=== PATIENT | male | born 1975 | race Hispanic/Latino ===

== ENCOUNTER 2017-02-04 10:29 | Observation (INO) | payer SELFPAY ==
[2017-02-04 11:06] LABS: Hematocrit 52.4 % (42.0-52.0); Mean Platelet Volume 7.5 fL (7.4-10.4); Red Blood Cell (RBC) Count 5.64 mill/uL (4.70-6.10); White Blood Cell (WBC) Count 6.4 thou/uL (4.8-10.8)
[2017-02-04] MEDS ORDERED: Nitroglycerin 2% Ointment 1 INCH/1 GM Packet ONE (11:06)
--- NOTE | 2017-02-04 11:09 | RAD ---
UPRIGHT PORTABLE CHEST ONE VIEW: HISTORY: A 41-year-old male with chest pain and a history of hypertension. FINDINGS: Monitor leads overly the chest. Heart size is within normal limits. Lungs are clear. Right hip anthony int arthrosis. IMPRESSION: No acute intrathoracic disease. POS: [facility]
[2017-02-04 11:26] LABS: ALT (SGPT) 104 U/L (8-55); AST (SGOT) 103 U/L (5-34); Alkaline Phosphatase 82 U/L (40-150); Anion Gap 14 mmol/L (10-20); BUN (Urea Nitrogen) 15 mg/dL (8.9-20.6); Band 1 % (5-11); Bilirubin, Total 1.3 mg/dL (0.2-1.2); CK (CPK) 59 U/L (30-200); Calc. Creatinine Clearance 0 mL/min (70-130); Calcium 9.7 mg/dL (7.8-10.44); Carbon Dioxide 25 mmol/L (22-29); Chloride 101 mmol/L (98-107); Estimated GFR-MDRD Greater than 90; Globulin 3.9 g/dL (2.4-3.5); Lipase 29 U/L (8-78); Neutrophil 70 % (42-75); Protein, Total 8.4 g/dL (6.0-8.3); Reactive Lymphocytes 1 % (0-10)
[2017-02-04 11:29] LABS: Troponin I 0.012 ng/mL (< 0.028)
[2017-02-04 14:03] LABS: Troponin I Less than 0.010 ng/mL (< 0.028)
--- NOTE | 2017-02-04 14:37 | HP ---
PRIMARY CARE PHYSICIAN: [facility] call admission. REASON FOR ADMISSION: Chest pain. HISTORY OF PRESENT ILLNESS: A 41-year-old male, who claims that he does not have any medic al history, who came to the emergency room with complaint of chest pain for 3 days. The patient rep orts that his chest pain is substernal in location on and off, lasts for 20 minutes, subsides by its elf and recurrent. There is no specific aggravating and relieving factor. The patient feels someti mes diaphoresis. He denies any nausea or vomiting. He denies any radiation of pain. His intensity of pain is about 4/10. He denies any cough. He denies any palpitations, dizziness, or syncope. H e denies any polyuria or polydipsia. Patient has history of smoking about 5 cigarettes daily basis. He also drinks beer every day basis. He denies any burning pain. He denies any hematemesis or melena. He denies any epigastric or rig ht upper quadrant pain. Today in the emergency room, he has hyperglycemia with blood glucose of 329 and his LFT is also abno rmal. His blood pressure was also very high when he arrived to the emergency room and it was remain ing high. The patient is not taking any specific medication. At this point, we are admitting this patient for further evaluation and treatment. PAST MEDICAL HISTORY: Per patient, he does not have any medical history. He denies any diabetes, h ypertension or dyslipidemia. PAST SURGICAL HISTORY: Patient denies any previous surgical history. PAST PSYCHIATRIC HISTORY: The patient denies any previous psychiatric history. SOCIAL HISTORY: Patient reports that he smokes 5-6 cigarettes on a daily basis. He drinks 8-9 beer s on a daily basis. He lives with a roommate. He denies any other illicit drug abuse. He is worki ng in construction. FAMILY HISTORY: No strong family history of premature coronary artery disease, stroke or cancer. ALLERGIES: No known drug allergies. CURRENT HOME MEDICATIONS: The patient is not on any specific medication. REVIEW OF SYSTEMS: The following complete review of systems was negative, unless otherwise mentione d in the HPI or below: CONSTITUTIONAL: Weight loss or gain, ability to conduct usual activities. SKIN: Rash, itching. EYES: Double vision, pain. ENT/MOUTH: Nose bleeding, neck stiffness, pain, tenderness. CARDIOVASCULAR: Palpitations, dyspnea on exertion, orthopnea. RESPIRATORY: Shortness of breath, wheezing, cough, hemoptysis, fever or night sweats. GASTROINTESTINAL: Poor appetite, abdominal pain, heartburn, nausea, vomiting, constipation, or diar ya. GENITOURINARY: Urgency, frequency, dysuria, nocturia. MUSCULOSKELETAL: Pain, swelling. NEUROLOGIC/PSYCHIATRIC: Anxiety, depression. ALLERGY/IMMUNOLOGIC: Skin rash, bleeding tendency. Please see my HPI for pertinent positives and negatives. All other review of systems reviewed and n egative except as mentioned in the HPI. EMERGENCY ROOM COURSE: Patient is given IV fluid, aspirin and nitropatch. PHYSICAL EXAMINATION: VITAL SIGNS: On arrival, blood pressure 205/114, pulse 84, respiratory rate 20, temperature 98.8, s aturation 97% on room air. Weight 127 kilograms. GENERAL: Patient is currently alert, awake, no obvious acute distress. HEAD: Normocephalic, atraumatic. EYES: Pupils round, reactive to light. Extraocular muscles intact. ENT: Oropharynx within normal limits. Moist mucous membranes. No oral lesions. No pharyngeal thom thema, no exudates. NECK: Supple Range of motion is normal. No meningeal signs of irritation. LUNGS: Clear to auscultation without any rhonchi or rales. CARDIAC: S1, S2 regular without any murmur. ABDOMEN: Soft, bowel sounds present, nontender, nondistended. No organomegaly, no mass, no suprapu bic tenderness, no [place] sign. BACK: Unremarkable, no CVA tenderness. EXTREMITIES: Upper extremity: Passive movement of all joints are normal. Lower extremity: No tayler ma. Good peripheral pulsation. SKIN: No skin rash. HEMATOLOGICAL: No lymphadenopathy. NEUROLOGIC: Nonfocal examination. SIGNIFICANT LABS: CBC: WBC 6.4, hemoglobin 17.1, platelets 175. BMP: Sodium 136, potassium 4.2, chloride 101, carbon dioxide 25, anion gap 14, BUN 15, creatinine 0.85, glucose 329, calcium 9.7. L FT: AST 103, ALT 104, alkaline phosphatase 82, albumin 4.5. BNP 49.5, CK-MB 1.2, troponin I 0.012. IMAGING: EKG based on my review, normal sinus rhythm without any ischemic changes. ASSESSMENT AND PLAN/IMPRESSION: 1. Acute and recurrent chest pain. This patient has hyperglycemia, tobacco abuse history. He is a lso hypertensive and he has obesity. He has metabolic syndrome. He is at risk for coronary artery disease. At this point, cardiac enzymes negative. His description of chest pain is also atypical. At this point, cardiac etiology needs to be excluded and that is why we will perform exercise Cardi olite stress test tomorrow morning. We will check lipid profile for risk stratification. Meanwhile , we will continue with aspirin 325 mg p.o. daily, Protonix 40 mg p.o. daily, nitropatch q.8 hourly. We will do serial cardiac enzymes x3. 2. New onset diabetes type 2, Suspected this patient's blood glucose is 329. I am suspecting new o nset diabetes on him. We will check hemoglobin A1c. We will also check urinalysis. Dietary consul t will be placed and depending upon his hemoglobin A1c. We will consider adding oral diabetic medic ation upon discharge, metformin, oral glyburide. We will continue with insulin as per sliding scale protocol and will provide diabetic diet only today. 3. Hypertension with hypertensive urgency and uncontrolled hypertension. This patient has new diag nosis of hypertension. At this point, we will continue with nitro patch. We will also consider add ing lisinopril 5 mg p.o. b.i.d. upon discharge. We will also consider adding diuretics like hydroch lorothiazide. We will also consider adding beta daron therapy upon discharge. We will monitor he modynamics as needed basis. We will consider using hydralazine and clonidine on p.r.n. basis. 4. Abnormal liver function test, likely related with his alcohol use versus fatty liver. We will o btain right upper quadrant ultrasound and we will check hepatitis profile to rule out any other path ology. 5. Tobacco abuse disorder. Smoking cessation counseling given. Healthy lifestyle measures discuss ed with the patient. 6. Alcohol abuse. Patient is given counseling to avoid alcohol protocol. We will start folic acid and vitamin B12 while in hospital. We will also consider adding Ativan to use p.r.n. basis to prev ent any withdrawal reaction. 7. Deep venous thrombosis prophylaxis not needed because we are expecting discharge in 24 hours. 8. Gastrointestinal prophylaxis, Protonix 40 mg p.o. daily. CODE STATUS: Patient is FULL CODE. Disposition plan based on clinical course and above-mentioned investigation result.
[2017-02-04] MEDS ORDERED: Senokot 8.6 MG TAB PO PRN (15:02)
[2017-02-04] MEDS ORDERED: Dextrose 50% Abboject 50 ML SYRINGE SLOW IVP PRN (15:02)
[2017-02-04] MEDS ORDERED: Sodium Chloride 0.65% Nasal 44 ML BOT EA NARE PRN (15:02)
[2017-02-04] MEDS ORDERED: Mag-Al 1200 mg/1200 mg/30 ML UDCUP PO PRN (15:02)
[2017-02-04] MEDS ORDERED: Ondansetron HCl/PF 4 MG/2 ML Vial IVP PRN (15:02)
[2017-02-04] MEDS ORDERED: Ondansetron ODT 4 MG TAB PO PRN (15:02)
[2017-02-04] MEDS ORDERED: Zolpidem Tartrate 5 MG TAB PO PRN (15:02)
[2017-02-04] MEDS ORDERED: Dextrose 5% in Water 1,000 ML IV PRN (15:02)
[2017-02-04] MEDS ORDERED: Diabetic Tussin 200 MG/10 ML UDCUP PO PRN (15:02)
[2017-02-04] MEDS ORDERED: Nitroglycerin 0.4 MG TAB (25 Tab Bottle) SL PRN (15:02)
[2017-02-04] MEDS ORDERED: HumaLOG 300 UNITS/3 ML VIAL SC PRN (15:02)
[2017-02-04] MEDS ORDERED: Lorazepam 1 MG TAB PO PRN (15:02)
[2017-02-04] MEDS ORDERED: Milk Of Magnesia 30 ML UDCUP PO PRN (15:02)
[2017-02-04] MEDS ORDERED: HYDROcodone/Acetaminophen 5/325 mg Tablet PO PRN (15:02)
[2017-02-04 15:04] VITALS: BMI 42.0
[2017-02-04 15:20] LABS: Hemoglobin A1c 9.3 % (4.0-6.0)
[2017-02-04] MEDS: Acetaminophen 325 MG TAB PO PRN (17:06)
[2017-02-04 17:43] LABS: Bilirubin Negative (Negative); Blood, Urine Negative (Negative); Glucose, Urine (Dipstick) >=1000 mg/dL (Negative); Ketone, Urine Negative (Negative); Nitrite Negative (Negative); Protein, Urine (Dipstick) Negative (Neg-Trace)
[2017-02-04 17:45] LABS: Bacteria/HPF None Seen HPF (None Seen); Hyaline Casts/LPF 0-3 HYALINE CAST LPF (0-3 Hyaline); RBC/HPF 0-3 HPF (0-3); Squamous Epithelial None Seen HPF (0-3); WBC/HPF None Seen HPF (0-3)
[2017-02-04 17:46] LABS: Troponin I Less than 0.010 ng/mL (< 0.028)
[2017-02-04 17:52] LABS: Amphetamine Not Detected (NotDetected); Methadone Not Detected (NotDetected); Methamphetamine Not Detected (NotDetected)
[2017-02-04] MEDS: cloNIDine HCl 0.1 MG TAB PO PRN (17:57)
[2017-02-04] MEDS: Nitroglycerin 2% Ointment 1 INCH/1 GM Packet TOP SCH (18:25)
[2017-02-04] MEDS: HumaLOG 300 UNITS/3 ML VIAL SC PRN (18:27)
[2017-02-05] MEDS: cloNIDine HCl 0.1 MG TAB PO PRN ×2 (01:05→13:00)
[2017-02-05] MEDS: Nitroglycerin 2% Ointment 1 INCH/1 GM Packet TOP SCH ×5 (04:01→21:36)
[2017-02-05 04:59] LABS: #Eosinphils 0.3 thou/uL (0.0-0.7); #Lymphocytes 1.7 thou/uL (1.20-3.40); #Monocytes 0.5 thou/uL (0.11-0.59); #Neutrophils 4.5 thou/uL (1.40-6.50); %Basophils 0.5 % (0.0-1.0); %Eosinophils 3.8 % (0.0-10.0); %Monocytes 7.4 % (0.0-10.0); Hematocrit 46.7 % (42.0-52.0); Mean Platelet Volume 7.4 fL (7.4-10.4); White Blood Cell (WBC) Count 6.9 thou/uL (4.8-10.8)
[2017-02-05 05:17] LABS: ALT (SGPT) 89 U/L (8-55); AST (SGOT) 63 U/L (5-34); Alkaline Phosphatase 66 U/L (40-150); Anion Gap 12 mmol/L (10-20); BUN (Urea Nitrogen) 13 mg/dL (8.9-20.6); Bilirubin, Total 0.9 mg/dL (0.2-1.2); Calc. Creatinine Clearance 224 mL/min (70-130); Calcium 9.1 mg/dL (7.8-10.44); Carbon Dioxide 24 mmol/L (22-29); Chloride 105 mmol/L (98-107); Cholesterol 221 mg/dl (< 200 Desired); Estimated GFR-MDRD Greater than 90; Globulin 3.1 g/dL (2.4-3.5); LDL Cholesterol, Calculated 151 mg/dL
--- NOTE | 2017-02-05 07:20 | ULT ---
RIGHT UPPER QUADRANT ULTRASOUND: INDICATION: Abnormal LFTs. COMPARISON: None. FINDINGS: There is diffuse increased echogenicity of the liver with diminished penetration consistent with fat ty infiltration. The liver is enlarged measuring 91.7 cm. There are areas of suspected focal sparr ing near the gallbladder fossa. The visualized gallbladder is normal-appearing. No sonographic Mur phy's sign is reported. Common bile duct measures 2.7 mm. The pancreas is partially obscured but without evidence of acute sonographic abnormality within its visualized segments. The right kidney measures 14 x 4.9 x 5 cm. There is a small 1.8 cm cyst involving the inferior pole of the right kidney. IMPRESSION: 1. Prominent fatty infiltration of the liver with hepatomegaly. 2. Right renal cyst. 3. No additional sonographic abnormality of the right upper quadrant. POS: [facility]
[2017-02-05] MEDS ORDERED: Communication Order-Pharmacy FS SCH (09:45)
[2017-02-05] MEDS ORDERED: Sodium Chloride 0.9% 1,000 ML IV SCH ×2 (09:45→11:30)
[2017-02-05] MEDS: Lisinopril 10 MG TAB PO SCH (10:19)
[2017-02-05] MEDS: Aspirin 325 MG TAB PO SCH (10:19)
[2017-02-05] MEDS: Hydrochlorothiazide 25 MG TAB PO SCH (10:20)
--- NOTE | 2017-02-05 10:40 | NM ---
CARDIAC SPECT AT REST: CLINICAL HISTORY: 41-year-old male with chest pain. TECHNIQUE: A rest-only myocardial perfusion scan was performed following the intravenous administration of 28.4 mCi technetium-99m sestamibi. Stress test was not performed and the patient was taken directly to [facility]. FINDINGS: Homogeneous tracer distribution is seen in the myocardial segments on the rest images. IMPRESSION: Normal myocardial perfusion at rest. POS: [facility]
[2017-02-05] MEDS ORDERED: Midazolam HCl 2 mg/2 ml Vial ONE (10:54)
[2017-02-05] MEDS ORDERED: Fentanyl 100 MCG/2 ML VIAL ONE (10:54)
[2017-02-05] MEDS ORDERED: Heparin 10,000 UNITS/1 ML VIAL ONE (10:54)
[2017-02-05] MEDS ORDERED: Nitroglycerin 100MG/250ML BOT 250 ML ONE (10:54)
[2017-02-05] MEDS ORDERED: Acetaminophen/Codeine 30-300mg Tablet PO PRN ×2 (11:27)
[2017-02-05] MEDS ORDERED: traMADol HCl 50 MG TAB PO PRN (11:27)
[2017-02-05] MEDS ORDERED: Nitroglycerin 0.4 MG TAB (25 Tab Bottle) SL PRN (11:27)
[2017-02-05] MEDS ORDERED: Sodium Chloride 0.9% 200 ML IV SCH (11:30)
[2017-02-05] MEDS: Folic Acid 1 MG TAB PO SCH (12:22)
[2017-02-05] MEDS: Cyanocobalamin (Vitamin B-12) 1,000 MCG TAB PO SCH (12:22)
[2017-02-05] MEDS: Multivitamin W/ Minerals 1 TAB PO SCH (12:22)
[2017-02-05] MEDS: HumaLOG 300 UNITS/3 ML VIAL SC PRN ×2 (12:24→18:27)
--- NOTE | 2017-02-05 13:53 | PDOC.PN ---
- Subjective Encounter Start Date: 02/05/17 Encounter Start Time: 13:52 Subjective: s/p cardiac Cath.feels Ok. no CP/SOB - Objective Resuscitation Status: Resuscitation Status FULL:Full Resuscitation MAR Reviewed: Yes Vital Signs & Weight: Vital Signs (12 hours) Temp Pulse Resp BP BP Pulse Ox 02/05/17 13:00 203/105 H 02/05/17 12:01 98.9 F 76 16 171/95 H 96 02/05/17 08:00 98.7 F 88 18 02/05/17 07:54 98.7 F 88 18 176/87 H 95 02/05/17 03:55 98.5 F 84 20 176/92 H 95 02/05/17 02:30 88 185/85 H Weight Weight 260 lb 12.8 oz I&O: 02/04/17 02/05/17 02/06/17 06:59 06:59 06:59 Intake Total 861 240 Output Total 300 Balance 561 240 Result Diagrams: 02/05/17 04:35 02/05/17 04:35 Additional Labs: Accuchecks 02/05/17 02/04/17 02/04/17 11:57 21:09 17:19 POC Glucose 246 H 289 H 265 H Laboratory Tests 02/04/17 02/04/17 02/04/17 10:55 10:55 13:27 Hemoglobin A1c Total Bilirubin 1.3 H AST 103 H ALT 104 H Alkaline Phosphatase 82 Troponin I 0.012 Less than 0.010 TSH 3rd Generation 02/04/17 02/04/17 02/04/17 15:02 15:02 17:15 Hemoglobin A1c 9.3 H Total Bilirubin AST ALT Alkaline Phosphatase Troponin I Less than 0.010 TSH 3rd Generation 1.4475 02/05/17 04:35 Hemoglobin A1c Total Bilirubin 0.9 AST 63 H ALT 89 H Alkaline Phosphatase 66 Troponin I TSH 3rd Generation Radiology Reviewed by me: Yes (Abd US- fatty liver) Phys Exam - Physical Examination Constitutional: NAD HEENT: PERRLA, moist MMs, sclera anicteric, TM's clear, oral pharynx no lesions , 2+ tonsils Neck: no nodes, no JVD, supple, full ROM Respiratory: no wheezing, no rales, no rhonchi, clear to auscultation bilateral Cardiovascular: RRR, no significant murmur, no rub, gallop Gastrointestinal: soft, non-tender, no distention, positive bowel sounds Musculoskeletal: no edema, pulses present Neurological: non-focal, normal sensation, moves all 4 limbs Psychiatric: normal affect, A&O x 3 Skin: no rash Dx/Plan (1) Hypertensive urgency Code(s): I16.0 - HYPERTENSIVE URGENCY Status: Acute (2) Chest pain Code(s): R07.9 - CHEST PAIN, UNSPECIFIED Status: Resolved Comment: S/P Cath - Moderate CAD (3) HTN (hypertension) Code(s): I10 - ESSENTIAL (PRIMARY) HYPERTENSION Status: Chronic (4) DMII (diabetes mellitus, type 2) Status: Chronic Qualifiers: Diabetes mellitus complication status: with hyperglycemia (5) HLD (hyperlipidemia) Code(s): E78.5 - HYPERLIPIDEMIA, UNSPECIFIED Status: Chronic - Plan plan discussed w/ family, DVT proph w/SCDs BP dangerously high.cont Nitro patch.add Lisinopril+HCTZ.PRN meds -: cont asa.add low dose BB.Lifestyle modification.consult dietitician -: Cont ISS for now. metformin on DC. -: LFT improving.likley due to fatty infiltration. -: alcohal & Tobacco abuse counselling provided. * .Not ready for DC yet due to HTN urgency.monitor. Review of Systems - Review of Systems Constitutional: negative: Fever, Chills, Sweats, Weakness, Malaise, Other Respiratory: negative: Cough, Dry, Shortness of Breath, Hemoptysis, SOB with Excertion, Pleuritic Pain, Sputum, Wheezing Cardiovascular: negative: Chest Pain, Palpitations, Orthopnea, Paroxysmal Noc. Dyspnea, Edema, Light Headedness, Other Gastrointestinal: negative: Nausea, Vomiting, Abdominal Pain, Diarrhea, Constipation, Melena, Hematochezia, Other Genitourinary: negative: Dysuria, Frequency, Incontinence, Hematuria, Retention , Other Musculoskeletal: negative: Neck Pain, Shoulder Pain, Arm Pain, Back Pain, Hand Pain, Leg Pain, Foot Pain, Other Neurological: negative: Weakness, Numbness, Incoordination, Change in Speech, Confusion, Seizures, Other - Medications/Allergies Allergies/Adverse Reactions: Allergies Allergy/AdvReac Type Severity Reaction Status Date / Time No Known Drug Allergies Allergy Verified 02/04/17 15:16 Medications: Current Medications Acetaminophen (Tylenol) 650 mg PO Q4H PRN PRN Reason: Headache/Fever or Pain Last Admin: 02/04/17 17:06 Dose: 650 mg Acetaminophen/Codeine Phosphate (Tylenol #3) 1 tab PO Q4H PRN PRN Reason: Mild Pain (1-3) Acetaminophen/Codeine Phosphate (Tylenol #3) 2 tab PO Q4H PRN PRN Reason: Moderate Pain (4-6) Hydrocodone Bitart/Acetaminophen ([place] 5/325) 1 tab PO Q4H PRN PRN Reason: Moderate Pain (4-6) Al Hydroxide/Mg Hydroxide (Maalox) 30 ml PO Q6H PRN PRN Reason: Heartburn or Indigestion Aspirin (Aspirin) 325 mg PO DAILY [facility] Last Admin: 02/05/17 10:19 Dose: 325 mg Clonidine HCl (Catapres) 0.1 mg PO Q4H PRN PRN Reason: Systolic BP > 180 Last Admin: 02/05/17 13:00 Dose: 0.1 mg Cyanocobalamin (Vitamin B-12) 1,000 mcg PO DAILY [facility] Last Admin: 02/05/17 12:22 Dose: 1,000 mcg Dextrose/Water (Dextrose 50%) 25 gm SLOW IVP PRN PRN PRN Reason: Hypoglycemia Folic Acid (Folvite) 1 mg PO DAILY [facility] Last Admin: 02/05/17 12:22 Dose: 1 mg Glucagon (Glucagon) 1 mg IM PRN PRN PRN Reason: Hypoglycemia Guaifenesin (Robitussin Sf) 200 mg PO Q4H PRN PRN Reason: Cough Hydralazine HCl (Apresoline) 10 mg SLOW IVP Q4H PRN PRN Reason: Systolic BP > 180 Last Admin: 02/04/17 23:16 Dose: 10 mg Hydrochlorothiazide (Hydrochlorothiazide) 12.5 mg PO DAILY [facility] Last Admin: 02/05/17 10:20 Dose: 12.5 mg Dextrose/Water (D5w) 1,000 mls @ 0 mls/hr IV .Q0M PRN; As Directed PRN Reason: Hypoglycemia Sodium Chloride (Normal Saline 0.9%) 1,000 mls @ 125 mls/hr IV .Q8H [facility] Stop: 02/05/17 15:31 Last Admin: 09/21/17 12:22 Dose: 1,000 mls Sodium Chloride (Normal Saline 0.9%) 200 mls @ 0 mls/hr IV ONE [facility] PRN Reason: As Directed Stop: 02/06/17 11:31 Insulin Human Lispro (Humalog) 0 units SC .MODERATE SLIDING SC PRN PRN Reason: Moderate Correctional Scale Last Admin: 02/05/17 12:24 Dose: 4 unit Insulin Human Lispro (Humalog) 0 units SC .BEDTIME SLIDING SC PRN PRN Reason: Bedtime Correctional Scale Last Admin: 02/04/17 21:16 Dose: 3 unit Iron/Minerals/Multivitamins (Theragran M) 1 tab PO DAILY [facility] Last Admin: 02/05/17 12:22 Dose: 1 tab Lisinopril (Zestril) 10 mg PO DAILY [facility] Last Admin: 02/05/17 10:19 Dose: 10 mg Lorazepam (Ativan) 1 mg PO Q4H PRN PRN Reason: Anxiety/Agitation Magnesium Hydroxide (Milk Of Magnesium) 30 ml PO DAILYPRN PRN PRN Reason: Constipation Metformin HCl (Glucophage) 500 mg PO BID-[facility] Last Admin: 02/05/17 10:30 Dose: Not Given Miscellaneous Information (Communication Order-Pharmacy) 0 each FS ONE [facility] Stop: 02/05/17 21:00 Nitroglycerin (Nitrostat) 0.4 mg SL Q5MIN PRN PRN Reason: Chest Pain Nitroglycerin (Nitro-Bid 2% Ointment) 0.5 inch TOP Q8H [facility] Last Admin: 02/05/17 13:00 Dose: 0.5 inch Nitroglycerin (Nitrostat) 0.4 mg SL Q5MIN PRN PRN Reason: Chest Pain Ondansetron HCl (Zofran Odt) 4 mg PO Q6H PRN PRN Reason: Nausea/Vomiting Ondansetron HCl (Zofran) 4 mg IVP Q6H PRN PRN Reason: Nausea/Vomiting Pantoprazole Sodium (Protonix) 40 mg PO DAILY [facility] Last Admin: 02/05/17 10:20 Dose: 40 mg Senna (Senokot) 2 tab PO HSPRN PRN PRN Reason: Constipation Sodium Chloride (Bee Nasal [place] 0.65%) 0 ml EA NARE QIDPRN PRN PRN Reason: Nasal Congestion Sodium Chloride (Flush - Normal Saline) 10 ml IVF Q12HR [facility] Last Admin: 02/05/17 10:19 Dose: 10 ml Sodium Chloride (Flush - Normal Saline) 10 ml IVF PRN PRN PRN Reason: Saline Flush Thiamine HCl (Thiamine) 100 mg PO DAILY [facility] Last Admin: 02/05/17 12:22 Dose: 100 mg Tramadol HCl (Ultram) 50 mg PO Q6H PRN PRN Reason: Moderate Pain (4-6) Zolpidem Tartrate (Ambien) 5 mg PO HSPRN PRN PRN Reason: Insomnia
--- NOTE | 2017-02-05 14:56 | CON ---
DATE OF CONSULTATION: 02/05/2017 REASON FOR CONSULTATION: Chest pain and EKG changes. REFERRING PROVIDER: Dr. Chan. HISTORY OF PRESENT ILLNESS: Mr. Dowling is a 41-year-old gentleman, who has a previous history of tobacco abuse and new onset diabetes mellitus, who recently presented with intermittent chest pain. These changes have been noted in the last 3 days. The pain lasted for 20 minutes and resolved. He is currently having discomfort. The pain was felt to be moderate. The notes reflect a glucose level of 329 in the emergency room. PAST MEDICAL HISTORY: As above. PAST SURGICAL HISTORY: None. SOCIAL HISTORY: As above including an 8-9 beers per day. MEDICATIONS: None. FAMILY HISTORY: Negative for CAD. REVIEW OF SYSTEMS: Ten-point review of systems is reviewed and as above, negative. PHYSICAL EXAMINATION: GENERAL: Patient is a pleasant male who is in no acute distress. The patient appears his stated ag e. VITAL SIGNS: Blood pressure 176/87, pulse 88, temperature 97.8. NEUROLOGIC: The patient is alert and oriented times 3 with no focal neurologic deficits. HEENT: Sclerae without icterus. Mouth has moist mucous membranes with normal pallor. NECK: No JVD. Carotid upstroke brisk. No bruits bilaterally. LUNGS: Clear to auscultation with unlabored respirations. BACK: No scoliosis or kyphosis. CARDIAC: Regular rate and rhythm with normal S1 and S2. No S3 or S4 noted. No significant rubs, m urmurs, thrills, or gallops noted throughout the precordium. PMI is not displaced. There is no par asternal heave. ABDOMEN: Soft, nontender, nondistended. No peritoneal signs present. No hepatosplenomegaly. No a bnormal striae. EXTREMITIES: 2+ femoral and 2+ dorsalis pedis pulses. No cyanosis, clubbing, or edema. SKIN: No gross abnormalities. PERTINENT LABS: Hematocrit 15.3. Urine toxicology negative. Creatinine 0.72, AST 63 and ALT 89, c holesterol 221. EKG dated 02/04/2017, normal sinus rhythm, normal EKG. EKG this morning shows ST-T wave changes suggesting ischemia noted in the inferolateral leads. IMPRESSION: 1. Unstable angina. 2. Diabetes mellitus, new onset. 3. Tobacco abuse. 4. Hypertension. RECOMMENDATIONS: Given the EKG findings, Mr. Dowling's symptoms are more likely related to unstabl e angina versus atypical chest pain. He does have risk factors as described above. I discussed the coronary angiography in full detail with Mr. Dowling. Risks included but are not limited to the f ollowing: , stroke, [place], need for emergency surgery, loss of limb, bleeding, and infection, as w ell as a reaction to the dye causing kidney failure and needing long-term dialysis. I also discusse d the risks of PCI to include all of the above including coronary dissection and perforation in avelino tion to acute stent thrombosis and restenosis. All questions about the procedure were answered. Gi corinne the above, the patient agreed to proceed with coronary angiography and possible PCI. This was d iscussed in Mongolian. I also discussed drug-coated or nondrug coated stent placement. We will proce ed with a bare metal stent if needed. Further recommendations pending the above.
[2017-02-05] MEDS: Acetaminophen 325 MG TAB PO PRN ×2 (16:19→21:42)
[2017-02-05] MEDS: Metoprolol Tartrate 25 MG TAB PO SCH (21:36)
[2017-02-06 05:19] LABS: Anion Gap 14 mmol/L (10-20); BUN (Urea Nitrogen) 16 mg/dL (8.9-20.6); Calc. Creatinine Clearance 210 mL/min (70-130); Calcium 9.4 mg/dL (7.8-10.44); Carbon Dioxide 26 mmol/L (22-29); Chloride 101 mmol/L (98-107); Estimated GFR-MDRD Greater than 90
[2017-02-06] MEDS: HumaLOG 300 UNITS/3 ML VIAL SC PRN (05:46)
[2017-02-06 08:09] VITALS: BP 161/87; TEMP 98.3
[2017-02-06] MEDS: Aspirin 325 MG TAB PO SCH (08:42)
[2017-02-06] MEDS: Hydrochlorothiazide 25 MG TAB PO SCH (08:42)
[2017-02-06] MEDS: Multivitamin W/ Minerals 1 TAB PO SCH (08:44)
[2017-02-06] MEDS: Metoprolol Tartrate 25 MG TAB PO SCH (08:44)
[2017-02-06] MEDS: Cyanocobalamin (Vitamin B-12) 1,000 MCG TAB PO SCH (08:45)
[2017-02-06] MEDS: Lisinopril 10 MG TAB PO SCH (08:45)
[2017-02-06] MEDS: Folic Acid 1 MG TAB PO SCH (08:46)
--- NOTE | 2017-02-06 11:10 | PDOC.PN ---
- Subjective Encounter Start Date: 02/06/17 Encounter Start Time: 11:09 Subjective: feels good. no CP/SOB - Objective Resuscitation Status: Resuscitation Status FULL:Full Resuscitation MAR Reviewed: Yes Vital Signs & Weight: Vital Signs (12 hours) Temp Pulse Resp BP BP Pulse Ox 02/06/17 08:45 161/87 H 02/06/17 08:00 98.3 F 70 16 02/06/17 07:42 98.3 F 70 16 161/87 H 96 02/06/17 04:00 98.9 F 77 14 156/91 H 97 02/05/17 23:39 97.8 F 73 18 167/101 H 95 Weight Weight 261 lb 4.8 oz I&O: 02/05/17 02/06/17 02/07/17 06:59 06:59 06:59 Intake Total 861 1387 [id number] Output Total 300 Balance 561 1387 [id number] Result Diagrams: 02/05/17 04:35 02/06/17 04:15 Additional Labs: Accuchecks 02/06/17 02/05/17 02/05/17 05:45 20:58 17:16 POC Glucose 179 H 194 H 241 H 02/05/17 11:57 POC Glucose 246 H Phys Exam - Physical Examination Constitutional: NAD HEENT: PERRLA, moist MMs, sclera anicteric, oral pharynx no lesions Neck: no nodes, no JVD, supple, full ROM Respiratory: no wheezing, no rales, no rhonchi, clear to auscultation bilateral Cardiovascular: RRR, no significant murmur, no rub, gallop Gastrointestinal: soft, non-tender, no distention, positive bowel sounds Musculoskeletal: no edema, pulses present Neurological: non-focal, normal sensation, moves all 4 limbs Psychiatric: normal affect, A&O x 3 Dx/Plan (1) Hypertensive urgency Code(s): I16.0 - HYPERTENSIVE URGENCY Status: Acute (2) Chest pain Code(s): R07.9 - CHEST PAIN, UNSPECIFIED Status: Resolved Comment: S/P Cath - Moderate CAD (3) HTN (hypertension) Code(s): I10 - ESSENTIAL (PRIMARY) HYPERTENSION Status: Chronic (4) DMII (diabetes mellitus, type 2) Status: Chronic Qualifiers: Diabetes mellitus complication status: with hyperglycemia (5) HLD (hyperlipidemia) Code(s): E78.5 - HYPERLIPIDEMIA, UNSPECIFIED Status: Chronic - Plan DVT proph w/SCDs DC home.cont YISEL-I,BB,statin,low dose ASA -: metformin BID.f/u w PCP * . Review of Systems - Review of Systems Constitutional: negative: Fever, Chills, Sweats, Weakness, Malaise, Other Respiratory: negative: Cough, Dry, Shortness of Breath, Hemoptysis, SOB with Excertion, Pleuritic Pain, Sputum, Wheezing Cardiovascular: negative: Chest Pain, Palpitations, Orthopnea, Paroxysmal Noc. Dyspnea, Edema, Light Headedness, Other Gastrointestinal: negative: Nausea, Vomiting, Abdominal Pain, Diarrhea, Constipation, Melena, Hematochezia, Other Genitourinary: negative: Dysuria, Frequency, Incontinence, Hematuria, Retention , Other Musculoskeletal: negative: Neck Pain, Shoulder Pain, Arm Pain, Back Pain, Hand Pain, Leg Pain, Foot Pain, Other Neurological: negative: Weakness, Numbness, Incoordination, Change in Speech, Confusion, Seizures, Other - Medications/Allergies Allergies/Adverse Reactions: Allergies Allergy/AdvReac Type Severity Reaction Status Date / Time No Known Drug Allergies Allergy Verified 02/04/17 15:16
--- NOTE | 2017-02-06 20:34 | DIS ---
DATE OF ADMISSION: 02/04/2017 DATE OF DISCHARGE: 02/06/2017 PRIMARY CARE PHYSICIAN: None. Patient is instructed to follow up with [facility] in [facility] to establish care. DISCHARGE DIAGNOSES: 1. New diagnosis of diabetes mellitus type 2. 2. Ggtu-aw-wfvzbenp coronary artery disease. 3. Hypertension with uncontrolled hypertensive urgency upon presentation. 4. Dyslipidemia. 5. Moderate obesity. 6. Tobacco abuse. 7. Alcohol abuse. DISCHARGE MEDICATIONS: Metformin 500 mg p.o. b.i.d., lisinopril 10 mg daily, aspirin 81 mg daily, N itrostat sublingual 0.4 mg every 5 minutes for chest pain as needed, simvastatin 20 mg daily. PROCEDURES DONE IN THE HOSPITAL: Include, 1. Nuclear medicine stress test, only rest images, which were normal. 2. Cardiac catheterization, which showed moderate coronary artery disease. CONSULTATION: Include Cardiology, Dr. Quinn. ADMISSION HISTORY: Mr. Dowling is a 41-year-old male with history of dgbw-vw-clgddtlb tob acco and alcohol use on a daily basis without any significant medical care in the past who presented to the emergency room with complaints of chest pain. It was substernal in location lasting for abo ut 10-20 minutes on and off. Upon presentation, his blood sugar was found to be high at 329 and he also had transaminitis. His blood pressure was also very high in the range of 205/114. His EKG zac wed sinus rhythm without any ischemic changes and his initial cardiac enzymes with troponin was 0.01 2 with CK-MB of 1.2. BNP was 49. He was admitted for further workup for his chest pain, hyperglyce justin, and hypertensive urgency and transaminitis. Please see admission history and physical for furt her details. HOSPITAL COURSE: The patient's blood pressure was controlled with starting him on lisinopril initia lly. Later, beta daron was also added. Medications were adjusted and by the time of discharge, h is blood pressure has been stabilized. He was found to have new-onset diabetes mellitus. His hemoglobin A1c was 9.3 with family history of significant diabetes in multiple family members. He was started on metformin, which he will start after the discharge. He was also given prescriptions for glucometer and test strips, etc. With regard to his chest pain, it did not reoccur in the hospital. He did have some EKG changes whe n Cardiology, Dr. Quinn saw him, and for this reason, he was taken to cardiac computer lab para [facility], there he was found to have moderate coronary artery disease. Medical management was suggested by Dr. Divina rodriguez and he was started on YISEL inhibitor and beta daron along with statin and aspirin at this time. He was seen and examined prior to discharge this morning and strict counseling was provided about th e need for medication compliance and for followup. He is instructed to keep a log of his blood suga rs and bring information to his primary care physician. His family helped him understand all of thi s and they are eager to follow up. Dietitian was also consulted and diabetic education was provided for him. He was seen and examined prior to the discharge. Please see hospitalist progress note from today's date for further detail.
== END 2017-02-06 10:58 | disposition home or self-care (01) ==
LOC: ERS 10:29 → 2SW 13:38
PROVIDERS: ADMIT Internal Medicine; ATTEND Internal Medicine
DX: E11.65 Type 2 diabetes mellitus with hyperglycemia (principal); I16.0 Hypertensive urgency; I25.10 Atherosclerotic heart disease of native coronary artery without angina pectoris; E78.5 Hyperlipidemia, unspecified; E66.9 Obesity, unspecified; F17.210 Nicotine dependence, cigarettes, uncomplicated; F10.10 Alcohol abuse, uncomplicated; E88.81 Metabolic syndrome and other insulin resistance; I10 Essential (primary) hypertension; R94.5 Abnormal results of liver function studies; Z68.41 Body mass index [BMI] 40.0-44.9, adult
CPT/HCPCS: 36415; 36416; 71010; 76705; 78451; 80048; 80053; 80061; 80074; 80306; 81001; 82550; 82553; 83036; 83690; 83880; 84443; 84484; 85007; 85025; 85027; 90471; 90732; 93005; 93458; 94760; 96360; 96361; 96374; 96376; 99152; A4216; A9500; C1769; G0009; G0378; J0360; J1644; J2250; J3010

== ENCOUNTER 2017-04-11 12:13 | Observation (INO) | payer SELFPAY ==
[2017-04-11 12:59] LABS: #Eosinphils 0.1 thou/uL (0.0-0.7); #Lymphocytes 1.1 thou/uL (1.20-3.40); #Monocytes 0.5 thou/uL (0.11-0.59); #Neutrophils 7.1 thou/uL (1.40-6.50); %Basophils 0.2 % (0.0-1.0); %Eosinophils 0.6 % (0.0-10.0); %Lymphocytes 12.3 % (21.0-51.0); %Monocytes 5.5 % (0.0-10.0); Hematocrit 43.5 % (42.0-52.0); Mean Platelet Volume 7.1 fL (7.4-10.4); Red Blood Cell (RBC) Count 4.81 mill/uL (4.70-6.10); White Blood Cell (WBC) Count 8.7 thou/uL (4.8-10.8)
[2017-04-11 13:19] LABS: ALT (SGPT) 24 U/L (8-55); AST (SGOT) 21 U/L (5-34); Alkaline Phosphatase 81 U/L (40-150); Anion Gap 18 mmol/L (10-20); BUN (Urea Nitrogen) 9 mg/dL (8.9-20.6); Bilirubin, Total 1.6 mg/dL (0.2-1.2); CK (CPK) 70 U/L (30-200); Calc. Creatinine Clearance 0 mL/min (70-130); Calcium 9.1 mg/dL (7.8-10.44); Carbon Dioxide 21 mmol/L (22-29); Chloride 103 mmol/L (98-107); Estimated GFR-MDRD Greater than 90; Globulin 3.7 g/dL (2.4-3.5); Protein, Total 7.9 g/dL (6.0-8.3)
[2017-04-11 13:23] LABS: Troponin I Less than 0.010 ng/mL (< 0.028)
[2017-04-11] MEDS ORDERED: Nitroglycerin 0.4 MG TAB (25 Tab Bottle) ONE (13:49)
[2017-04-11] MEDS ORDERED: Metoprolol Tartrate 5 MG/5 ML VIAL ONE ×2 (13:49→14:18)
--- NOTE | 2017-04-11 15:15 | RAD ---
PORTABLE UPRIGHT FRONTAL CHEST RADIOGRAPH: DATE: 04/11/17. HISTORY: Chest pain. FINDINGS: No pneumothorax, pleural fluid, focal consolidation, or alveolar edema. Cardiac silhouette is promin ent which may signify magnification and/or enlargement. IMPRESSION: No focal consolidation or alveolar edema. POS: [facility]
[2017-04-11] MEDS ORDERED: Ondansetron HCl/PF 4 MG/2 ML Vial IVP PRN (15:32)
[2017-04-11] MEDS ORDERED: Loratadine 10 MG TAB PO PRN (15:32)
[2017-04-11] MEDS ORDERED: Calcium Carbonate 500 MG ChewTAB PO PRN (15:32)
[2017-04-11] MEDS ORDERED: hydrALAZINE 20 MG/ML VIAL SLOW IVP PRN (15:32)
[2017-04-11] MEDS ORDERED: cloNIDine 0.1 MG TAB PO PRN (15:32)
[2017-04-11] MEDS ORDERED: Lorazepam 1 MG TAB PO PRN (15:32)
[2017-04-11] MEDS ORDERED: HumaLOG 300 UNITS/3 ML VIAL SC PRN ×2 (15:32)
[2017-04-11] MEDS ORDERED: HYDROcodone/Acetaminophen 5/325 mg Tablet PO PRN (15:32)
[2017-04-11] MEDS ORDERED: Nitroglycerin 0.4 MG TAB (25 Tab Bottle) SL PRN (15:32)
[2017-04-11] MEDS ORDERED: Bisacodyl 5 MG TAB PO PRN ×2 (15:32)
[2017-04-11] MEDS ORDERED: Dextrose 50% Abboject 50 ML SYRINGE SLOW IVP PRN (15:32)
[2017-04-11] MEDS ORDERED: Benzonatate 100 MG CAP PO PRN (15:32)
[2017-04-11] MEDS ORDERED: Mag-Al 1200 mg/1200 mg/30 ML UDCUP PO PRN (15:32)
[2017-04-11] MEDS ORDERED: Diabetic Tussin 200 MG/10 ML UDCUP PO PRN (15:32)
[2017-04-11] MEDS ORDERED: Dextrose 5% in Water 1,000 ML IV PRN (15:32)
[2017-04-11] MEDS ORDERED: Acetaminophen 325 MG TAB PO PRN (15:32)
[2017-04-11] MEDS ORDERED: Senokot 8.6 MG TAB PO PRN ×2 (15:32)
[2017-04-11 15:46] VITALS: BMI 39.4
[2017-04-11 16:03] LABS: Troponin I Less than 0.010 ng/mL (< 0.028)
[2017-04-11] MEDS: metFORMIN 500 MG TAB PO SCH (16:07)
[2017-04-11] MEDS: Aspirin 325 MG TAB PO SCH (16:08)
[2017-04-11] MEDS ORDERED: Lisinopril 10 MG TAB PO SCH (16:15)
[2017-04-11 19:17] LABS: Troponin I 0.011 ng/mL (< 0.028)
[2017-04-11] MEDS: Lisinopril 10 MG TAB PO SCH (20:53)
[2017-04-11] MEDS: Metoprolol Tartrate 25 MG TAB PO SCH (20:54)
[2017-04-11] MEDS ORDERED: FLU VACC QS2017-18 36 mo. & older 0.5 ML SYRINGE IM ONE (21:00)
[2017-04-11] MEDS ORDERED: Simvastatin 20 MG TAB PO SCH (21:00)
[2017-04-11] MEDS ORDERED: Pravastatin Sodium 20 MG TAB PO SCH (21:00)
--- NOTE | 2017-04-12 01:37 | HP ---
DATE OF ADMISSION: 04/11/2017 PRIMARY CARE PHYSICIAN: None. The patient has not established care with any PCP yet. CHIEF COMPLAINT: Chest pain. HISTORY OF PRESENTING ILLNESS: Mr. Dowling is a pleasant 41-year-old male with past medica l history of hypertension and moderate coronary artery disease as well as new diagnosis of diabetes i n January of this year, presented to the emergency room with the above-mentioned complaint. Histor y is mainly obtained by the patient himself and electronic medical records have been reviewed. Case has been discussed with the admitting ER physician. The patient was last admitted to our facility in 01/2017 for chest pain and hypertensive urgency. At that time, he underwent a cardiac stress testing, which was unremarkable. He also underwent a cardi ac catheterization, which showed moderate coronary artery disease and he did not require stenting. Gael tarango was also diagnosed at that time with diabetes and was discharged on aspirin, statin, beta daron, YISEL inhibitor as well as metformin. Unfortunately, the patient reports that he ran out of the medications. He was prescribed from the [facility] and has not followed up with a primary care physician. Even though, he was supposed to. Toda y, he presented to the emergency room with complaints of sharp, severe chest pain. He reports that i t has been ongoing for about 2-3 days. It is located in the left side of the center of his chest and he denies any radiation of the pain. It is associated with diaphoresis, but he denies any palpitati on, shortness of breath, dizziness or nausea with it. He describes it as a pressure-like sensation 8 -9/10 in intensity. He describes it as coming and going. He also has a mild headache on and off. O therwise, he denies any other recent illnesses. His family is present in the room and they report th at he is still drinking, though he is trying to quit. The result of that is that he is now binge dri nking. Upon presentation to the emergency room, his blood pressure was highly elevated at 206/110 with heart rate of 106. His initial workup including a 12-lead EKG and cardiac enzymes were unremarkable. Amee st x-ray was normal. He was given nitroglycerin sublingual as well as transdermal and labetalol and his blood pressure has improved to systolic 180s over diastolic in the 90s. He is now being admitted for further evaluation and care with diagnosis of unstable angina as well as hypertensive urgency. PAST MEDICAL HISTORY: 1. Hypertension. 2. Coronary artery disease. 3. Morbid obesity. 4. Diabetes mellitus type 2. 5. Dyslipidemia. PAST SURGICAL HISTORY: Cardiac catheterization on 02/04/2017, which showed moderate coronary artery disease without any angioplasty. PSYCHIATRIC HISTORY: Reviewed with the patient and none. SOCIAL HISTORY: He stated that he has stopped smoking. He is still drinking alcohol on the weekends . He lives alone, but his family is involved in his care and is present in the room. FAMILY HISTORY: Significant family history of diabetes and hypertension in multiple family members. REVIEW OF SYSTEMS: The following complete review of systems was negative, unless otherwise mentioned in the HPI or below: CONSTITUTIONAL: Weight loss or gain, ability to conduct usual activities. SKIN: Rash, itching. EYES: Double vision, pain. ENT/MOUTH: Nose bleeding, neck stiffness, pain, tenderness. CARDIOVASCULAR: Palpitations, dyspnea on exertion, orthopnea. RESPIRATORY: Shortness of breath, wheezing, cough, hemoptysis, fever or night sweats. GASTROINTESTINAL: Poor appetite, abdominal pain, heartburn, nausea, vomiting, constipation, or diarr hea. GENITOURINARY: Urgency, frequency, dysuria, nocturia. MUSCULOSKELETAL: Pain, swelling. NEUROLOGIC/PSYCHIATRIC: Anxiety, depression. ALLERGY/IMMUNOLOGIC: Skin rash, bleeding tendency. LABORATORY DATA: CBC shows neutrophils at 81%, otherwise unremarkable. Serum chemistries show bicar bonate at 21, blood sugar 199, total bilirubin 1.6. CK-MB and cardiac enzymes are normal. LFTs are normal. Chest x-ray by my review as no evidence to suggest pleural effusion, edema or infiltrate. C ardiomegaly is noticed. PHYSICAL EXAMINATION: VITAL SIGNS: Most recent vital signs include blood pressure 161/104, pulse of 85, respirations 18, s aturating 96% on room air, temperature 98.4. GENERAL: No acute distress, awake, alert, oriented x3. HEENT: Facial redness is noticed. No oropharyngeal exudate or erythema. Head is normocephalic, atr aumatic. Pupils equal, reactive to light and accommodation. Extraocular movements intact. NECK: Supple without any lymphadenopathy, JVD or bruit. CHEST: Clear to auscultation without any wheezing, rales or rhonchi. Rate and rhythm is regular wit hout any murmur, rubs or gallops. ABDOMEN: Soft, nontender, nondistended with positive bowel sounds, morbidly obese. EXTREMITIES: Free of any cyanosis, clubbing, or edema. NEUROLOGIC: Nonfocal. SKIN: Free of any rashes or bruises, feels warm and dry to touch. PSYCHIATRIC: Normal affect. IMPRESSION AND PLAN: 1. Hypertensive urgency. At this time, the patient's hypertension has been treated in the ER and fenton s much improved control. We will try to slowly lower his blood pressure by restarting his home medic ation. We will add long-acting nitrates given his presentation with chest pain and known history of coronary artery disease. Resume lisinopril and beta daron at this time. Medications will further be adjusted as needed. 2. Chest pain, most likely secondary to hypertensive urgency. Given his moderate coronary artery di sease and multiple risk factors, unstable angina can also not be ruled out at this time. We will con tinue to trend serial cardiac enzymes and request Cardiology consultation. He had a cardiac stress t est done about 2 months ago and for this reason, it will not be repeated for now. As stated above, w e will start him on long-acting nitrates. Continue aspirin, statin, beta-daron. 3. Diabetes mellitus. Unfortunately, the patient has not been taking any of his medications or chec javan his blood sugars. We will restart him on his metformin and add insulin sliding scale for better control with frequent Accu-Cheks. He will be educated about diabetes and we will consult dietitian about dietary discussions. 4. Morbid obesity. 5. Dyslipidemia. Restart his statin. 6. Coronary artery disease. Continue aspirin, statin, beta daron, and YISEL inhibitor. 7. Deep venous thrombosis and gastrointestinal prophylaxis. 8. Code status: FULL CODE implied given the young age. DISPOSITION: Mr. Dowling is being admitted to hospital for hypertensive urgency and chest pain to r binae out acute coronary syndrome. Further management will depend upon his clinical course.
--- NOTE | 2017-04-12 01:50 | CON ---
DATE OF CONSULTATION: 04/11/2017 REASON FOR CONSULTATION: Hypertension and chest pain. PRIMARY BARN MANAGER: Paulie Quinn M.D. HISTORY OF PRESENT ILLNESS: Mr. Dowling is a 41-year-old gentleman who comes to the hospit tx for chest pain. He was found to have a blood pressure of 200/120, so he was admitted for [facility] emergency. He had had similar admission back in December of this year, he was diagnosed with the same situation. He had a heart catheterization done by Dr. Quinn and was found to have mild to m oderate coronary artery disease. He was given blood pressure medications and he apparently ran out a bout 2-3 weeks ago and has taken anything since. He was scheduled to see somebody in the clinic in 2 -3 weeks apparently, but he decided to come in as he kept having chest pains. He denies any more mil[address] st pain now that his blood pressure is much better. PAST MEDICAL HISTORY: 1. Type 2 diabetes. 2. Mild to moderate coronary artery disease. 3. Hypertension. 4. Hyperlipidemia. 5. Obesity. 6. Tobacco use. 7. Alcohol use. OUTPATIENT MEDICATIONS: Include, 1. Metformin 500 mg p.o. b.i.d. 2. Lisinopril 10 mg a day. 3. Aspirin 81 mg a day. 4. Sublingual nitro p.r.n. 5. Simvastatin 20 mg a day. ALLERGIES: No known drug allergies. SOCIAL HISTORY: He has smoked about 5-6 cigarettes a day. He states he stopped this since he was se en in the hospital. He drinks about 8 or 9 beers every day, but he has cut back significantly. He d enies any drug use. Works in construction. PAST SURGICAL HISTORY: None. FAMILY HISTORY: No early coronary artery disease. REVIEW OF SYSTEMS: Twelve point review of systems was done and was all negative unless stated in the history of present illness. PHYSICAL EXAMINATION: VITAL SIGNS: Temperature 98.8, pulse 78, respiration rate 16, satting 97% on room air, blood pressur e 182/105. GENERAL: Awake, alert, oriented x3, in no distress. HEENT: Normocephalic, atraumatic. NECK: Supple. LUNGS: Clear. CARDIOVASCULAR: S1, S2, no S3 or S4, no murmurs, rubs, or gallops. ABDOMEN: Soft with positive bowel sounds. EXTREMITIES: No edema. SKIN: Warm and dry. LABORATORY WORK: Reviewed. White count of 8, hemoglobin of 14, hematocrit of 42, platelet count 213 . Chemistries were unremarkable except for glucose of 199, troponin was undetectable x3, albumin of 4.2. Total bilirubin of 1.6. EKG was reviewed, no ischemic changes. Chest x-ray was unremarkable. ASSESSMENT AND PLAN: 1. Hypertensive emergency. 2. Mild to moderate coronary artery disease, most likely stable. 3. Noncompliance. 4. Alcohol use. PLAN: 1. Restart home medications. 2. We will increase the lisinopril of 10 mg from once a day to twice a day. Continue clonidine p.r. n. for systolic blood pressure of 170. Continue metoprolol. If his blood pressure is better control led tomorrow, he should be able to be discharged home. No plans of any risk stratification at this t ashley as he had a mild to moderate coronary artery disease and has had completely negative troponins. Thank you for letting us participate in the care of your patient. We will follow.
[2017-04-12 06:10] LABS: #Eosinphils 0.1 thou/uL (0.0-0.7); #Lymphocytes 1.4 thou/uL (1.20-3.40); #Monocytes 0.6 thou/uL (0.11-0.59); #Neutrophils 6.9 thou/uL (1.40-6.50); %Basophils 0.1 % (0.0-1.0); %Eosinophils 1.3 % (0.0-10.0); %Lymphocytes 15.5 % (21.0-51.0); %Monocytes 6.4 % (0.0-10.0); Hematocrit 39.1 % (42.0-52.0); Mean Platelet Volume 7.1 fL (7.4-10.4); Red Blood Cell (RBC) Count 4.33 mill/uL (4.70-6.10); White Blood Cell (WBC) Count 8.9 thou/uL (4.8-10.8)
[2017-04-12 06:30] LABS: Anion Gap 9 mmol/L (10-20); BUN (Urea Nitrogen) 11 mg/dL (8.9-20.6); Calc. Creatinine Clearance 141 mL/min (70-130); Calcium 9.1 mg/dL (7.8-10.44); Carbon Dioxide 29 mmol/L (22-29); Chloride 103 mmol/L (98-107); Estimated GFR-MDRD Greater than 90
[2017-04-12 08:06] VITALS: TEMP 98.2
[2017-04-12] MEDS: Metoprolol Tartrate 25 MG TAB PO SCH (08:55)
[2017-04-12] MEDS: Lisinopril 10 MG TAB PO SCH (08:55)
[2017-04-12] MEDS: Aspirin 325 MG TAB PO SCH (08:55)
[2017-04-12] MEDS: metFORMIN 500 MG TAB PO SCH (08:55)
[2017-04-12] MEDS ORDERED: Lisinopril 10 MG TAB PO SCH ×2 (09:00)
[2017-04-12] MEDS ORDERED: Enoxaparin Sodium 40 MG/0.4 ML SYRINGE SC SCH (09:00)
[2017-04-12 11:57] VITALS: BP 124/72
--- NOTE | 2017-04-12 17:20 | DIS ---
DATE OF ADMISSION: 04/11/2017 DATE OF DISCHARGE: 04/12/2017 CONDITION AT THE TIME OF DISCHARGE: Stable and improved. DISCHARGE DIAGNOSES: 1. Hypertensive urgency. 2. Diabetes mellitus. 3. Dyslipidemia. 4. Morbid obesity. 5. Medication noncompliance. 6. Coronary artery disease. CONSULTATIONS: Include Dr. Hoyos. DISCHARGE MEDICATIONS: His lisinopril has increased from 10 mg daily to 10 mg p.o. b.i.d., otherwise continued admission medication as follows Glucophage 500 mg p.o. b.i.d., simvastatin 20 mg daily, Ni trostat sublingual as needed, Lopressor 12.5 mg p.o. b.i.d., aspirin 81 mg daily. DISCHARGE FOLLOWUP: The patient is instructed again to establish care at [facility] for continued p rescription and care and followup with Dr. Hoyos as an outpatient in the clinic. ADMISSION HISTORY: Mr. Dowling is a 41-year-old male with history of hypertensive urgency with admission to the hospital recently and new diagnosis of diabetes who was sent home about a month ago who came back with complaints of chest pain and was found to be having hypertensive urgency agai n. He had run out of his medications and has not made any followup appointment with the primary care physician or Cardiology since his last hospital discharge. He was admitted with a preliminary diagn osis of chest pain secondary to hypertensive urgency and Cardiology was consulted. Blood pressure wa s acutely controlled in the emergency room and he was restarted on all of his home medications. Luke se see admission history and physical for further details. HOSPITAL COURSE: His blood pressure was much improved and his symptoms improved. Serial cardiac enz ymes were trended and they were negative. Cardiology, Dr. Hoyos saw the patient and agreed that thi s is not an angina. His lisinopril was increased to twice a day with much improved blood pressure co ntrol. By the time of discharge, he was hemodynamically stable and was cleared by Cardiology to go h ome as well. No acute intervention was needed at this time. The patient is once again educated abou t diabetes and the need to be compliant with his medications. All the medications were renewed and p rescriptions were provided to him. He is once again instructed to make appointment with the primary care physician. He was seen and examined on the day of discharge. PHYSICAL EXAMINATION: VITAL SIGNS: Temperature 98.2, pulse of 75, respirations 16, saturating 95% on room air, blood press ure 124/72. GENERAL: Sitting up in chair, in no acute distress. CHEST: Clear to auscultation without any wheezing, rales or rhonchi. Rate and rhythm is regular wit hout any murmur, rubs or gallops. At this time, he will be discharged home. His blood sugar is 175. Cardiac enzymes less than 0.010 x 2.
== END 2017-04-12 12:40 | disposition home or self-care (01) ==
LOC: ERS 12:13 → 2SW 15:00
PROVIDERS: ADMIT Internal Medicine; ATTEND Internal Medicine
DX: I16.0 Hypertensive urgency (principal); E11.9 Type 2 diabetes mellitus without complications; E78.5 Hyperlipidemia, unspecified; E66.01 Morbid (severe) obesity due to excess calories; I25.10 Atherosclerotic heart disease of native coronary artery without angina pectoris; R07.9 Chest pain, unspecified; Z98.890 Other specified postprocedural states; Z91.14 Patient's other noncompliance with medication regimen; Z68.24 Body mass index [BMI] 24.0-24.9, adult; Z72.89 Other problems related to lifestyle; Z87.891 Personal history of nicotine dependence
CPT/HCPCS: 36415; 36416; 71010; 80048; 80053; 82550; 82553; 84484; 85025; 90471; 90682; 93005; 94760; 96372; 96374; G0008; G0378; J1650; Q2036